=== PATIENT | male | born 1965 | race Caucasian/White ===

== ENCOUNTER 2019-04-14 13:00 | Outpatient (CLI) | payer BC ==
[~2019-04-14 13:00] MED LIST: BP MED; FLUT9.9S NS
== END 2019-04-14 13:41 | disposition home or self-care (01) ==
LOC: SLEEP 13:00
PROVIDERS: ATTEND Nurse Practitioner Family
DX: G47.50 Parasomnia, unspecified (principal); G47.10 Hypersomnia, unspecified